=== PATIENT | female | born 1990 | race Caucasian/White ===

== ENCOUNTER → 2022-07-24 | Outpatient (CLI) | payer OTHER, SELFPAY | END | disposition home or self-care (01) | LOC: LABSPEC 11:46 | PROVIDERS: PCP Family Medicine; Referring Provider Obstetrics & Gynecology; Visit Provider Obstetrics & Gynecology | DX: R10.2 Pelvic and perineal pain (principal) | CPT/HCPCS: 87070; 87086; 87088; 87205 ==

== ENCOUNTER 2022-12-16 16:40 | Observation (INO) | payer OTHER, SELFPAY ==
[2022-12-16] VITALS (17 sets, daily range): BP systolic 82–113; BP diastolic 55–77; PULSE 57–99; RESP 10–18; TEMP 36.2–37.1; O2SAT 98–100; BMI 22.8
[2022-12-16] MEDS: Lactated Ringers 1,000 ML 40 ML IV ×2 (07:00→09:00)
[2022-12-16 07:27] LABS: Hemoglobin 13.9 g/dL (12.0-15.0); Mean Corp Hgb Conc 33.1 g/dL (32-36); Mean Corpuscular Hgb 30.2 pg (27.0-32.0); Mean Corpuscular Volume 91.3 fL (81-99); Mean Platelet Vol. 11.3 fl (6.2-12.0); Platelet Count 212 K/mm3 (150-450); RBC Distribution Width CV 12.7 % (11.6-14.6)
--- NOTE | 2022-12-16 07:30 | PCM.HP.BLA ---
History and Physical Date of Admission: 12/16/22 Intake Vital Signs ? 12/13/2315:12 12/13/2315:13 Height 5 ft 7 in 5 ft 7 in Weight: 148 lb 4 oz ? BMI 23.2 ? BP 110/65 ? Blood Pressure Location Lt brachial ? Intake Visit Reasons:?TRH cysto Is patient in pain?: No Allergies adhesive tape Adverse Reaction (Mild, Verified 12/12/22 16:13) Rash Medications levothyroxine 100 mcg capsule 125 mcg PO DAILY 07/24/22 [History Confirmed 12/12/22] naproxen 500 mg tablet 500 mg PO BID PRN pain #60 tabs 08/06/22 [Rx Confirmed 12/12/22] Is last menstrual period known: Yes PFSH Medical History? Alcohol use Anxiety ASCUS (atypical squamous cells of undetermined significance) on gynecologic Papanicolaou smear complicating , antepartum Atypical glandular cells of undetermined significance (MAKENZIE) on cervical Pap smear Depression Gastric reflux History of endometrial biopsy Non-smoker Thyroid disease Wears contact lenses Surgical History? H/O esophagogastroduodenoscopy S/P S/P tonsillectomy Status post bilateral salpingectomy Family History? Grandmother DiabetesFather Myocardial infarction HyperlipidemiaSon Aplastic anemia Social History? Smoking Status:? Never smoker alcohol intake:? never substance use type:? does not use caffeine:? Yes what type of physical activity do you participate in:? walking and aerobics additional social history:? - [place] HPI TRH cysto Details: ROSARIO HINTON is a 32 year old who presents for follow up nuvaring start. She used it x 3 months and states that her pain became worse and she bled x 13 days one month and still very heavy. Ultrasound in June shows a 10.3 cm uterus with signs of adenomyosis suspected. She has a calendar with her that she writes the type of pain she has every single day from sharp to dull along with pain with sex that is now unbearable. She is tearful today stating that I already had my tubes removed and I just do not see the need to have my uterus any longer. 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 Her last hg this month was 14.5. Her thyroid medication was recently adjusted per her pcp History ? ? ? 2 ? Elective abortions ? Hx Para ? ? ? 2 ? Spontaneous abortions ? Hx # Term Pregnancies ? Ectopic pregnancies ? Hx # Pregnancies ? Multiple births ? # of living children ? Past Pregnancies Del. Date Name GA/Weeks Outcome Route Bth Weight Infant Gen Labor Lgth Anesthesia Del Locatn Provider FOB Unknown Theo ? Unknown Rosa ? ROS Const ROS Unobtainable: All systems reviewed & are unremarkable except as noted in H Resp Resp: Reports system reviewed and no additional complaints, except as documented; Denies cough GI GI: Reports as per HPI Psych Psych: Reports system reviewed and no additional complaints, except as documented Exam Const General: cooperative, healthy appearing, comfortable and no acute distress Resp Effort & Inspection: normal respiratory effort Skin General: no rashes or lesions noted Psych Appearance: grossly normal Speech and Movement: speech and movement normal Coding Level of Care Code Off vis,est,level 4 Diagnoses Hypothyroidism? E03.9 Abnormal uterine bleeding? N93.9 Pelvic pain? R10.2 Assessment and Plan Assessment and Plan (1) Hypothyroidism: ?Status:?Acute (2) Abnormal uterine bleeding: ?Status:?Acute (3) Pelvic pain: ?Status:?Acute ?Plan: After discussing the patient's diagnosis and treatment plan options, patient wishes to proceed with surgical management.? I have discussed with the patient the risks, benefits, and alternatives of the procedure which include but are not limited to risks of anesthesia, bleeding, infection, possible damage to bowel, bladder, or surrounding vasculature which could lead to additional surgery to evaluate any complications.? Patient agrees to procedure and wishes to proceed.? ACOG/uptodate references given for additional information regarding procedure.? plan for total robotic hysterectomy and cystoscopy on 12/16/22. plan to do cbc and type and screen morning of surgery due to living a far distance from the hospital.
[2022-12-16] MEDS: Celecoxib 200 MG Capsule 400 MG PO (07:36)
[2022-12-16] MEDS: Phenazopyridine 95 MG Tablet 190 MG PO (07:36)
[2022-12-16] MEDS: dexAMETHasone 4 MG/ML Vial 8 MG IV (07:36)
[2022-12-16] MEDS: Acetaminophen 500 MG Tablet 1000 MG PO (07:37)
[2022-12-16] MEDS: Gabapentin 600 MG Tablet PO (07:37)
[2022-12-16 07:52] LABS: Magnesium 1.8 mg/dL (1.6-2.6); Thyroid Stim Hormone (TSH) 0.79 uIU/mL (0.358-3.74)
--- NOTE | 2022-12-16 08:22 | DCINST_ITS ---
Discharge Instructions Diet Discharge Diet: No restrictions Activity May resume sexual activity in: 6 weeks Weight Bearing Status: Full weight bearing Dressing / Incision Call your doctor if your incision/area has: Continuous Slow Oozing, Sudden Increased Bleeding, Increased Pain/ Swelling, Increased Redness and Foul Smelling Discharge Call your doctor if you observe: Fever of 101 or Higher, Using more than 1 pad per hour, Shortness of breath, Chest pain and Uncontrolled pain Suture Line Care: Avoid Pulling/Pushing and Avoid Pinching/Bending Remove Dressing in: 1 week (if present) Cleanse incision/area with: Soap & Water and Keep Dressing Clean & Dry Follow Up Care Please Follow Up With: Jil Alejandro DO When: Call to make an appointment with your doctor for a postop visit in 2 and 6 weeks Test Results: Test results from this visit will be discussed in further detail at your follow- up appointment, if applicable. Discharge Plan Admission Primary Reason for Your Visit: status post hysterectomy Attending Provider: Jil Alejandro Primary Care Provider: Giacomo Atkins Discharge Orders/Prescriptions Prescriptions: New tramadol 50 mg tablet 50 mg PO Q6H PRN (Reason: pain) Qty: 20 0RF naproxen 500 mg tablet 500 mg PO BID PRN (Reason: pain) Qty: 30 0RF Continued levothyroxine 100 mcg capsule 125 mcg PO DAILY naproxen 500 mg tablet 500 mg PO BID PRN (Reason: pain) Qty: 60 3RF Referrals / Follow Up: Giacomo Atkins MD [Primary Care Provider] - Disposition Disposition (needs filled in before D/C Order can be placed): Home, Self Care
--- NOTE | 2022-12-16 08:50 | HYST_PTH ---
PATIENT: ROSARIO HINTON LOC: MS3 U#:[id number] AGE/SX: 32/F [place]OM: [facility] [place]16[place]: Dr. Jil Alejandro DO : 1990 BED: 1 DIS: 12/17/2022 SPEC #: [id number] RECD: 12/16/22 15:23 STATUS: ANGELINA DAMONSupa #: [id number] ANISHA: 12/16/22 08:[address]: Jil Alejandro DEPT: SURGICAL PATHOLOGY RECD BY: Ashley Leyva ENTERED: 12/17/22 08:45 SP TYPE: HYSTERECT OTHR DR: Dr. Giacomo Atkins MD Tissues: Uterus, NOS Procedures: Surgery Specimen Level V HEADER OPERATION: ERAS, lap robotic hysterectomy, cysto PRE-OP DIAGNOSIS: Abnormal uterine bleeding TISSUE SUBMITTED: Uterus MICROSCOPIC DIAGNOSIS Uterus, hysterectomy: Cervix ? nabothian cysts and mild chronic inflammation. Endometrium ? secretory endometrium Myometrium - focal superficial adenomyosis. AM:ann marie 12/18/2022 MICROSCOPIC DESCRIPTION Slides are reviewed. GROSS DESCRIPTION Received in fixative is one container labeled with the patient's name and designated uterus. The specimen consists of a hysterectomy specimen consisting of a uterus with cervix weighing 106 gm and measuring 10.0 x 6.0 x 4.0 cm. The serosal surface is joseph, glistening. The ectocervical mucosa is unremarkable. The external os is slit-like in contour. The endocervical canal measures 4.0 cm in length and the endocervical mucosa is joseph, glistening and unremarkable. The triangular endometrial cavity measures 4.5 cm in length and 2.0 cm in width. The endometrium is joseph, glistening without any mass lesion and measures 0.2 cm in thickness. Sections of the uterine wall do not reveal any mass lesion and measures up to 2.2 cm in thickness. Marriage And Family Social Worker sections are submitted in six cassettes as follows: 1??anterior cervix, 2 - posterior cervix, 3 & 4 - anterior uterine wall, 5 & 6 - posterior uterine wall. / SJ:ann marie 12/17/2022 TC:5 CPT: 55640
[2022-12-16] MEDS: Cefazolin 2 GM in 0.9% Normal Saline 100 ML IV (09:00)
[2022-12-16] MEDS: Ondansetron 4 MG/2 ML Vial IV (11:04)
[2022-12-16] MEDS: Bupivacaine 0.25% 30 ML Vial (11:13)
--- NOTE | 2022-12-16 11:18 | PCM.OPRPT ---
Problems Associated Problem List Diagnoses (1) Abnormal uterine bleeding: (2) Pelvic pain: Report of Operation Date of Procedure: 12/16/22 Pre-Operative Diagnosis: 32 y/o , pelvic pain, abnormal uterine bleeding, uterine scar Post-Operative Diagnosis: 32 y/o , pelvic pain, abnormal uterine bleeding, uterine scar Surgery/Procedure Performed:: total robotic hysterectomy, cystoscopy Description of Surgical Findings:: thick lower uterine segment scar, normal uterus and ovaries. normal cervix Surgeon: Jil Alejandro photoengraving sketch maker: Alhaji Birmingham Type of Anesthesia: General Specimen's removed: uterus, cervix Drains: none Estimated Blood Loss (mL): 50cc Description of Procedure: Findings: 10 cm size uterus, normal appearing ovaries and tubes. On exploration of the abdominal cavity the uterus, adnexa, bowel, and liver were found to be normal. Cystoscopy showed no evidence of leaking at approximately 250 cc of normal saline, positive ureteral orifices and jet flow are seen and no suture material was appreciated in the bladder. Specimens removed: Uterus and cervix Reason for surgery: This is a 32-year-old G2, P2 who presented to my office with history of sharp lower pelvic pain that is intermittent and worsened with menses. She has a history of prior section and there is thought that based on ultrasound the lower uterine segment is scared to the bladder pillars causing pain. the planned procedure is for a robotic hysterectomy the risks benefits and alternatives were discussed with the patient the patient had a clear understanding of the procedure and a consent form was signed. Procedure: The patient was placed in the dorsal low lithotomy position and prepped and draped in the normal sterile fashion both abdominally and in the perineum. Her legs were placed in stirrups a Doherty catheter was inserted into the urethra without difficulty. A weighted speculum was placed in the vagina and a single-tooth tenaculum was used to grasp the anterior lip of the cervix. An advincula uterine manipulator was inserted through the cervix without complication. It was then tied into place at the 2 and 10:00 locations on the cervix. Gloves were changed and attention was turned towards the abdomen. Approximately 23 cm above the pubic symphysis in the midline, and after Marcaine injection, a 8 mm incision was made. An 8 mm trocar was inserted through the laparoscope, then inserted into the abdomen under direct visualization using the laparoscope. Good abdominal placement was noted and no complications were appreciated. An air seal device was utilized to create pneumoperitoneum. At 12 cm lateral to the midline on the left and right sides 8 mm accessory ports were placed. Next a left upper quadrant 8 mm communication assistant port site was placed. The patient was placed in steep Trendelenburg position. The robot was docked. The hysterectomy was initiated first by taking down the round ligament on each side using the vessel sealer device. The broad ligament was then and taken down using the vessel sealer device. Next the bladder flap was taken down without complication. This was done using monopolar cautery to the level of the cervical vaginal junction. After the bladder flap was created, uterine vessels were then isolated and cauterized using the vessel sealer device and EndoShears. At this point the uterine vessels were taken down further starting from the ascending branch, dissecting along the edges of the cervix to the level of the cervical vaginal junction with hemostasis appreciated. The cervical vaginal junction was then using monopolar cautery in a circumferential pattern across the superior aspect of the cervix. The specimen was delivered through the vagina and sent to pathology. The remaining vaginal cuff was then closed using a V lock suture. This was performed in a running technique. Excellent hemostasis was obtained and good closure was noted. Irrigation was then performed. All operative sites were noted to be hemostatic. A cystoscopy was performed with a 70 degree cystoscope through the urethra into the bladder without complication. The bladder was instilled with approximately 250 cc of normal saline. Intraoperative images were made. Ureteral orifices and jets were identified. There were some suture material appreciated in the bladder at the dome initially. The sutures were taken down laparoscopically and replaced with a new running vaginal cuff. A second look with the cysto showed excellent flow from the ureters and no further suture material. no bleeding or wholes in the bladder. The bladder was water tight intraabdominally as well. The bladder was then drained and cystoscope was removed. The abdominal cavity was again examined using the laparoscope after the robot was undocked. All operative sites were noted to be hemostatic with the exception of a small amount of ozzing where suture was removed and replaced, causing a raw edge at the bladder junction. Fibrillar was applied and excellent hemostasis was achieved. The trochars were removed under direct visualization without complication and pneumoperitoneum was reduced. At this point the skin was then closed using 4-0 Monocryl subcuticular stitch and sealed with surgical glue. The patient tolerated the procedure well sponge lap and needle counts were correct x2 the patient was taken to the recovery room in stable condition. Admit VTE Documentation VTE Present on Admission: No VTE Mechan Device Prophylaxis: SCD's VTE Pharm Prophylaxis ordered?: No Multi Select Codes Urinary/Genital Urinary/Genital CPT Codes: 50327 Cystoscopy and 25111 TLH <250gr uterus
[2022-12-16] MEDS: Lactated Ringers @ 70 MLS/HR 70 ML IV (13:15)
[2022-12-16] MEDS: HYDROcodone Bitartrate/Apap 5/325 Tablet PO ×2 (14:28→17:05)
[2022-12-16] MEDS: Ondansetron 4 MG/2 ML Vial IM (15:35)
[2022-12-16] MEDS: Lactated Ringers 1,000 ML 100 ML IV (17:08)
[2022-12-16] MEDS: Naproxen 500 MG Tablet PO (21:10)
[2022-12-17 03:30] VITALS: BP 102/65; PULSE 103; RESP 18; TEMP 36.6; O2SAT 99
[2022-12-17] MEDS: Naproxen 500 MG Tablet PO (04:50)
--- NOTE | 2022-12-17 05:33 | PCM.PN.OB ---
Subjective Subjective Patient is laying in bed comfortably without complaints. She states that she slept on an off during the night. pain is now a mild cramping. She states that she still does not have an appetite Objective Data Objective Data Vital Signs: Vital Signs Temp Pulse Resp BP Pulse Ox O2 Del Method O2 Flow Rate 97.9 F 103 H 18 102/65 99 Room Air 4 12/17/22 03:30 12/17/22 03:30 12/17/22 03:30 12/17/22 03:30 12/17/22 03:30 12/17/22 03:30 12/16/22 13:30 Oxygen Flow Rate (L/min) 4 Oxygen Delivery Method Room Air Weight: 145 lb 8.081 oz Body Mass Index (BMI) 22.8 Intake & Output: Intake and Output for Last 24 Hours 12/15/22 12/16/22 12/17/22 23:59 23:59 23:59 Intake Total 3060.33 / 3060.33 Output Total 400 / 400 Balance 2660.33 / 2660.33 Lab / Micro Data Result Diagrams: 12/16/22 07:12 Labs: Laboratory Results - last 24 hr 12/16/22 07:12: Magnesium 1.8, TSH 0.79 12/16/22 07:12: WBC 7.0, RBC 4.60, Hgb 13.9, Hct 42.0, MCV 91.3, MCH 30.2, MCHC 33.1, RDW Std Deviation 42.0, RDW Coeff of Courtney 12.7, Plt Count 212, MPV 11.3 12/16/22 07:12: Blood Type O NEGATIVE, Antibody Screen NEGATIVE ROS Constitutional Constitutional: Reports systems reviewed and no addt'l complaints, except as documented Cardiovascular Cardiovascular: Denies chest pain, dizziness, dyspnea or irregular heart rhythm Respiratory/Chest Respiratory/Chest: Denies cough, pain on inspiration or shortness of breath at rest Gastrointestinal Gastrointestinal: Denies abdominal pain, nausea or vomiting Genitourinary Genitourinary: Denies burning urination Musculoskeletal Musculoskeletal: Denies muscle cramps, muscle spasms or muscle weakness Neurologic Neurologic: Denies confusion, dizziness, headache(s) or lack of coordination Psychiatric Psychiatric: Denies anxiety, behavioral changes or depression Physical Exam HEENT normocephalic Resp normal respiratory effort and normal air movement GI soft to palpation, non-tender and non-distended Rectal Exam: other Other Details: Incision is clean, dry, and intact no CVA tenderness Extremity normal to inspection General Extremity: edema bilateral (trace ) Assessment & Plan (1) Status post hysterectomy: COMMENT: TRH on -JV PLAN: patient is s/p robotic hyst POD 1 1. routine ERAS protocol postop care- increase ambulation, encourage oral intake and oral control of pain. lovenox and scds for dvt prophylaxis, patient stable for discharge to home. plan to check a CBC before discharge
[2022-12-17 06:08] LABS: Absolute Lymphocyte Count 1.71 X10^3/uL (0.83-4.51); Absolute Neutrophil Count 14.3 X10^3/uL (2.0-7.7); Basophil# 0.04 X10^3/uL; Basophil% 0.2 % (0-1); Eosinophil# 0.01 X10^3/uL; Eosinophils% 0.1 % (0-5); Hemoglobin 13.1 g/dL (12.0-15.0); Lymphocyte # 1.71 X10^3/ul (0.83-4.51); Lymphocyte % 9.9 % (19-41); Mean Corp Hgb Conc 32.8 g/dL (32-36); Mean Corpuscular Volume 91.5 fL (81-99); Mean Platelet Vol. 11.4 fl (6.2-12.0); Monocyte# 1.16 X10^3/uL; Monocyte% 6.7 % (0-10); NRBC Flagged by Analyzer 0 % (0-5); Neutrophil # 14.28 X10^3/uL (2.7-7.7); Neutrophil % 82.6 % (47-70); Platelet Count 217 K/mm3 (150-450); RBC Distribution Width CV 12.8 % (11.6-14.6); RBC Distribution Width SD 42.7 fl (35.1-43.9); Red Blood Count 4.37 M/mm3 (4.2-5.4); White Blood Count 17.3 K/mm3 (4.4-11.0)
[2022-12-17 08:38] VITALS: BP 98/60; PULSE 84; RESP 16; TEMP 36.8; O2SAT 96
[2022-12-17] MEDS: HYDROcodone Bitartrate/Apap 5/325 Tablet PO ×2 (08:45→13:34)
[2022-12-17 13:40] VITALS: BP 100/61; PULSE 84; RESP 18; TEMP 36.8; O2SAT 96
--- NOTE | 2022-12-17 14:14 | PHA.DC.MR ---
Pharmacy Service has performed discharge medication reconciliation for this patient. The patient's discharge medication list was reviewed for discrepancies and discrepancies were resolved. Medication education papers prepared, patient already discharged when counseling was attempted. Did not stop duplicate as the patient may still have refills remaining on initial naproxen RX. Home Medications levothyroxine 100 mcg capsule 125 mcg PO DAILY 07/24/22 naproxen 500 mg tablet 500 mg PO BID PRN pain #60 tabs 08/06/22 naproxen 500 mg tablet 500 mg PO BID PRN pain #30 tabs 12/16/22 tramadol 50 mg tablet 50 mg PO Q6H PRN pain #20 tabs 12/16/22
== END 2022-12-17 14:30 | disposition home or self-care (01) ==
LOC: SDC 12-17 08:02 → MS3 12-17 08:02
PROVIDERS: Anesthesiology; Admitting Provider Obstetrics & Gynecology; PCP Family Medicine; Referring Provider Obstetrics & Gynecology; Visit Provider Obstetrics & Gynecology
PROC: 0UT94ZZ Resection of Uterus, Percutaneous Endoscopic Approach (ICD-10-PCS; CPT 58570; principal; 2022-12-16 08:30)
DX: N93.9 Abnormal uterine and vaginal bleeding, unspecified (principal); E03.9 Hypothyroidism, unspecified; Z79.890 Hormone replacement therapy; K21.9 Gastro-esophageal reflux disease without esophagitis; N80.03 Adenomyosis of the uterus; R10.2 Pelvic and perineal pain
CPT/HCPCS: 58570; S2900; 00840; 36415; 83735; 84443; 85025; 85027; 86850; 86900; 86901; 88307; 96360; 96361; 99221; J7120; A4216; G0378; J2405

== ENCOUNTER → 2022-12-30 | Outpatient (CLI) | payer OTHER, SELFPAY | END | disposition home or self-care (01) | LOC: LABSPEC 13:07 | PROVIDERS: PCP Family Medicine; Referring Provider Obstetrics & Gynecology; Visit Provider Obstetrics & Gynecology | DX: R30.0 Dysuria (principal) | CPT/HCPCS: 87086; 87088 ==